=== PATIENT | male | born 1960 | race Caucasian/White ===

== ENCOUNTER 2023-07-05 07:28 | Observation (INO) | payer OTHER ==
[2023-07-05 10:56] VITALS: BMI 33.2
[2023-07-05] MEDS ORDERED: Iopamidol 370 76% 100 ML VIAL ONE (10:57)
[2023-07-05] MEDS ORDERED: Acetaminophen 325 MG TAB PO PRN (11:51)
[2023-07-05] MEDS ORDERED: ALPRAZolam 1 MG TAB PO PRN (11:53)
[2023-07-05] MEDS ORDERED: Dextrose 5% in Water 1,000 ML IV PRN (11:54)
[2023-07-05] MEDS ORDERED: HumaLOG 300 UNITS/3 ML VIAL SC PRN (11:54)
[2023-07-05] MEDS ORDERED: Dextrose 50% Abboject 50 ML SYRINGE SLOW IVP PRN (11:54)
[2023-07-05] MEDS ORDERED: Glucagon 1 MG/ML KIT IM PRN (11:54)
[2023-07-05] MEDS ORDERED: Communication Order-Pharmacy FS SCH ×2 (13:15)
[2023-07-05] MEDS ORDERED: Heparin 10,000 UNITS/ 10 ML VIAL ONE (13:29)
[2023-07-05] MEDS ORDERED: Lidocaine 1% (PF) 30 ML VIAL ONE (13:29)
[2023-07-05] MEDS ORDERED: Midazolam HCl 2 mg/2 ml Vial ONE (13:37)
[2023-07-05] MEDS ORDERED: fentaNYL 50 mcg/mL 1 mL Vial ONE (13:37)
[2023-07-05] MEDS ORDERED: Nitroglycerin 50 MG/250 ML BOT 250 ML ONE (13:37)
[2023-07-05] MEDS ORDERED: TICAGRELOR 90 MG TABLET ONE (14:53)
[2023-07-05] MEDS ORDERED: Nitroglycerin 0.4 MG TAB (25 Tab Bottle) SL PRN (14:57)
[2023-07-05] MEDS ORDERED: Acetaminophen/Codeine 30-300mg Tablet PO PRN (14:57)
[2023-07-05] MEDS ORDERED: Sodium Chloride 0.9% 200 ML IV PRN (14:57)
[2023-07-05] MEDS: Sodium Chloride 0.9% 1,000 ML IV SCH (15:30)
[2023-07-05] MEDS ORDERED: HumuLIN 70/30 100 Unit/ ml 10 ml Vial SC SCH (16:30)
[2023-07-05] MEDS ORDERED: Aspirin 81 mg Enteric Coated Tablet PO SCH (21:00)
[2023-07-05] MEDS ORDERED: Loratadine 10 MG TAB PO SCH (21:00)
[2023-07-05] MEDS ORDERED: QUEtiapine 25 MG TAB PO SCH (21:00)
[2023-07-05] MEDS ORDERED: Rosuvastatin 10 MG TAB PO SCH (21:00)
[2023-07-05] MEDS ORDERED: Lisinopril 2.5 MG TAB PO SCH (21:00)
[2023-07-05] MEDS: TICAGRELOR 90 MG TABLET PO SCH (22:32)
[2023-07-06] MEDS: Sodium Chloride 0.9% 1,000 ML IV SCH (00:42)
[2023-07-06 05:27] LABS: Cardiac Risk 4.6 (Less than 4.5); Cholesterol 114 mg/dl (< 200 Desired); HDL Cholesterol 25 mg/dL (>60 Neg Risk); Triglycerides 487 mg/dL (Less than 150)
[2023-07-06] MEDS: TICAGRELOR 90 MG TABLET PO SCH (09:00)
[2023-07-06] MEDS ORDERED: glyBURIDE 5 MG TAB PO SCH (09:00)
[2023-07-06 11:27] VITALS: BP 129/66; TEMP 97.2
== END 2023-07-06 11:29 | disposition home or self-care (01) ==
LOC: 2SE 10:06
PROVIDERS: ADMIT Student in an Organized Health Care Education/Training Program; ATTEND Internal Medicine
DX: I25.119 Atherosclerotic heart disease of native coronary artery with unspecified angina pectoris (principal); R20.0 Anesthesia of skin; I10 Essential (primary) hypertension; E11.9 Type 2 diabetes mellitus without complications; E78.5 Hyperlipidemia, unspecified; F41.8 Other specified anxiety disorders; M19.90 Unspecified osteoarthritis, unspecified site; F17.220 Nicotine dependence, chewing tobacco, uncomplicated; Z79.4 Long term (current) use of insulin; Z79.84 Long term (current) use of oral hypoglycemic drugs; Z79.82 Long term (current) use of aspirin; Z79.899 Other long term (current) drug therapy; Z87.441 Personal history of nephrotic syndrome; Z95.5 Presence of coronary angioplasty implant and graft
CPT/HCPCS: 36415; 36416; 80061; 85347; 92928; 93454; 93880; 99152; 99153; C1760; C1769; C1874; C1887; C9600; G0378; J1644; J1815; J2001; J2250; J3010; J7050; Q9967

== ENCOUNTER 2023-10-14 21:16 | Inpatient (IN) | payer OTHER ==
[2023-10-14 21:40] LABS: #Eosinphils 0.2 thou/uL (0.0-0.7); #Monocytes 0.6 thou/uL (0.11-0.59); #Neutrophils 3.6 thou/uL (1.40-6.50); %Basophils 0.6 % (0.0-1.0); %Lymphocytes 34.2 % (21.0-51.0); %Monocytes 8.8 % (0.0-10.0); %Neutrophils 52.7 % (42.0-75.0); Hemoglobin 12.8 g/dL (14.0-18.0); Mean Corpuscular HGB CONC 33.7 g/dL (32.0-36.0); Mean Corpuscular Volume 89.2 fl (78.0-98.0); Mean Platelet Volume 9.5 fL (7.4-10.4); Platelet Count 211 10x3/uL (130-400); RBC Distribution Width 12.7 % (11.5-14.5); Red Blood Cell (RBC) Count 4.26 mill/uL (4.70-6.10); White Blood Cell (WBC) Count 6.7 10x3/uL (4.8-10.8)
[2023-10-14 22:07] LABS: Troponin I Less than 0.010 ng/mL (< 0.028)
[2023-10-14 22:10] LABS: ALT (SGPT) 22 U/L (8-55); AST (SGOT) 18 U/L (5-34); Albumin 4.1 g/dL (3.4-4.8); Alkaline Phosphatase 101 U/L (40-110); Anion Gap 13 mmol/L (10-20); BUN (Urea Nitrogen) 19 mg/dL (8.4-25.7); Bilirubin, Total 0.4 mg/dL (0.2-1.2); Calc. Creatinine Clearance 0 mL/min (70-130); Calcium 9.4 mg/dL (7.8-10.44); Carbon Dioxide 26 mmol/L (23-31); Chloride 107 mmol/L (98-107); Estimated GFR 55; Globulin 2.5 g/dL (2.4-3.5); Glucose 216 mg/dL (80-115); Potassium 3.9 mmol/L (3.5-5.1); Protein, Total 6.6 g/dL (5.8-8.1); Sodium 142 mmol/L (136-145)
[2023-10-15 02:02] VITALS: BMI 33.7
[2023-10-15 02:21] LABS: SARS-CoV-2 NAA Rapid Test Not Detected (NotDetected)
[2023-10-15] MEDS ORDERED: Ondansetron ODT 4 MG TAB PO PRN (02:32)
[2023-10-15] MEDS ORDERED: Ondansetron PF 4 MG/2 ML Vial IVP PRN (02:32)
[2023-10-15] MEDS ORDERED: Nitroglycerin 0.4 MG TAB (25 Tab Bottle) SL PRN (02:32)
[2023-10-15] MEDS ORDERED: Acetaminophen 650 MG Suppository PR PRN (02:32)
[2023-10-15 04:26] LABS: #Eosinphils 0.2 thou/uL (0.0-0.7); #Monocytes 0.6 thou/uL (0.11-0.59); #Neutrophils 3.2 thou/uL (1.40-6.50); %Basophils 0.6 % (0.0-1.0); %Eosinophils 3.3 % (0.0-10.0); %Lymphocytes 37.7 % (21.0-51.0); %Monocytes 9.6 % (0.0-10.0); %Neutrophils 48.3 % (42.0-75.0); Hematocrit 38.4 % (42.0-52.0); Hemoglobin 12.6 g/dL (14.0-18.0); Mean Corpuscular HGB CONC 32.8 g/dL (32.0-36.0); Mean Corpuscular Hemoglobin 29.6 pg (27.0-31.0); Mean Corpuscular Volume 90.1 fl (78.0-98.0); Mean Platelet Volume 9.6 fL (7.4-10.4); Platelet Count 199 10x3/uL (130-400); RBC Distribution Width 12.7 % (11.5-14.5); Red Blood Cell (RBC) Count 4.26 mill/uL (4.70-6.10); White Blood Cell (WBC) Count 6.6 10x3/uL (4.8-10.8)
[2023-10-15 04:51] LABS: Anion Gap 13 mmol/L (10-20); BUN (Urea Nitrogen) 20 mg/dL (8.4-25.7); Calc. Creatinine Clearance 99 mL/min (70-130); Calcium 9.2 mg/dL (7.8-10.44); Carbon Dioxide 25 mmol/L (23-31); Chloride 109 mmol/L (98-107); Estimated GFR 75; Glucose 157 mg/dL (80-115); Potassium 4.1 mmol/L (3.5-5.1); Sodium 143 mmol/L (136-145)
[2023-10-15 04:57] LABS: Troponin I Less than 0.010 ng/mL (< 0.028)
[2023-10-15] MEDS ORDERED: Dextrose 50% Abboject 50 ML SYRINGE SLOW IVP PRN (05:09)
[2023-10-15] MEDS ORDERED: Dextrose 5% in Water 1,000 ML IV PRN (05:09)
[2023-10-15] MEDS ORDERED: Glucagon 1 MG/ML KIT IM PRN (05:09)
[2023-10-15] MEDS ORDERED: HumaLOG 300 UNITS/3 ML VIAL SC PRN ×2 (05:09)
[2023-10-15 08:25] LABS: Troponin I Less than 0.010 ng/mL (< 0.028)
[2023-10-15] MEDS: Rosuvastatin 20 MG TAB PO SCH (08:48)
[2023-10-15] MEDS: Aspirin Chewable 81 MG TAB PO SCH (08:48)
[2023-10-15] MEDS: TICAGRELOR 90 MG TABLET PO SCH ×2 (08:49→20:06)
[2023-10-15] MEDS ORDERED: ALPRAZolam 1 MG TAB PO PRN (10:24)
[2023-10-15] MEDS: Acetaminophen 325 MG TAB PO PRN ×2 (10:47→20:08)
[2023-10-15] MEDS ORDERED: Pantoprazole 40 MG VIAL IVP SCH (14:15)
[2023-10-15] MEDS ORDERED: Communication Order-Pharmacy FS SCH (15:00)
[2023-10-15] MEDS: Nicotine 14 MG PATCH TOP SCH (16:25)
[2023-10-15] MEDS ORDERED: Loratadine 10 MG TAB PO SCH (21:00)
[2023-10-15] MEDS ORDERED: Lisinopril 2.5 MG TAB PO SCH (21:00)
[2023-10-16 03:38] VITALS: BP 119/64; TEMP 97.6
[2023-10-16 04:39] LABS: #Eosinphils 0.3 thou/uL (0.0-0.7); #Monocytes 0.5 thou/uL (0.11-0.59); #Neutrophils 2.6 thou/uL (1.40-6.50); %Basophils 0.7 % (0.0-1.0); %Eosinophils 4.9 % (0.0-10.0); %Lymphocytes 39.4 % (21.0-51.0); %Monocytes 8.7 % (0.0-10.0); Hematocrit 39.3 % (42.0-52.0); Hemoglobin 12.9 g/dL (14.0-18.0); Mean Corpuscular HGB CONC 32.8 g/dL (32.0-36.0); Mean Corpuscular Hemoglobin 29.6 pg (27.0-31.0); Mean Corpuscular Volume 90.1 fl (78.0-98.0); Mean Platelet Volume 9.8 fL (7.4-10.4); Platelet Count 206 10x3/uL (130-400); RBC Distribution Width 12.5 % (11.5-14.5); Red Blood Cell (RBC) Count 4.36 mill/uL (4.70-6.10); White Blood Cell (WBC) Count 5.7 10x3/uL (4.8-10.8)
[2023-10-16 05:03] LABS: Anion Gap 12 mmol/L (10-20); BUN (Urea Nitrogen) 21 mg/dL (8.4-25.7); Calc. Creatinine Clearance 81 mL/min (70-130); Carbon Dioxide 24 mmol/L (23-31); Chloride 106 mmol/L (98-107); Estimated GFR 59; Glucose 223 mg/dL (80-115); Magnesium 1.9 mg/dL (1.6-2.6); Potassium 3.8 mmol/L (3.5-5.1); Sodium 138 mmol/L (136-145)
[2023-10-16] MEDS: TICAGRELOR 90 MG TABLET PO SCH (05:41)
[2023-10-16] MEDS: Aspirin Chewable 81 MG TAB PO SCH (06:05)
[2023-10-16] MEDS: Rosuvastatin 20 MG TAB PO SCH (06:05)
[2023-10-16] MEDS: Sodium Chloride 0.9% 1,000 ML IV SCH ×2 (06:05→13:22)
[2023-10-16] MEDS ORDERED: Lidocaine 1% (PF) 30 ML VIAL ONE (06:31)
[2023-10-16] MEDS ORDERED: Adenosine 6 MG/2 ML VIAL ONE (06:36)
[2023-10-16] MEDS ORDERED: Nitroglycerin 50 MG/250 ML BOT 0 ML ONE (06:37)
[2023-10-16] MEDS ORDERED: Verapamil 5 MG/2 ML VIAL ONE (06:37)
[2023-10-16] MEDS ORDERED: Heparin 10,000 UNITS/ 10 ML VIAL ONE (06:37)
[2023-10-16] MEDS ORDERED: fentaNYL 50 mcg/mL 1 mL Vial ONE (06:45)
[2023-10-16] MEDS ORDERED: Midazolam HCl 2 mg/2 ml Vial ONE (06:46)
[2023-10-16] MEDS ORDERED: glyBURIDE 5 MG TAB PO SCH (07:30)
[2023-10-16] MEDS: Nicotine 14 MG PATCH TOP SCH (13:22)
== END 2023-10-16 16:11 | disposition home or self-care (01) | DRG 74 ==
LOC: ERS 21:16 → 2SW 23:36 → OBSVTOIN 10-16 09:34
PROVIDERS: ADMIT Student in an Organized Health Care Education/Training Program; ATTEND Emergency Medicine
PROC: 4A023N7 Measurement of Cardiac Sampling and Pressure, Left Heart, Percutaneous Approach (ICD-10-PCS; principal; 2023-10-16)
PROC: B2111ZZ Fluoroscopy of Multiple Coronary Arteries using Low Osmolar Contrast (ICD-10-PCS; 2023-10-16)
DX: M54.12 Radiculopathy, cervical region (principal); N17.9 Acute kidney failure, unspecified; I25.10 Atherosclerotic heart disease of native coronary artery without angina pectoris; E78.5 Hyperlipidemia, unspecified; D64.9 Anemia, unspecified; F17.220 Nicotine dependence, chewing tobacco, uncomplicated; I45.10 Unspecified right bundle-branch block; N18.2 Chronic kidney disease, stage 2 (mild); I12.9 Hypertensive chronic kidney disease with stage 1 through stage 4 chronic kidney disease, or unspecified chronic kidney disease; E11.22 Type 2 diabetes mellitus with diabetic chronic kidney disease; Z11.52 Encounter for screening for COVID-19; Z79.899 Other long term (current) drug therapy; Z79.82 Long term (current) use of aspirin; Z79.4 Long term (current) use of insulin; Z95.5 Presence of coronary angioplasty implant and graft; Z98.890 Other specified postprocedural states
CPT/HCPCS: 36415; 36416; 71045; 80048; 80053; 83735; 83880; 84484; 85025; 85347; 93005; 93010; 96372; 96374; C1769; C1887; C9113; G0378; J0153; J1644; J1650; J1815; J2001; J2250; J3010; J7050; U0002